=== PATIENT | female | born 1995 | race Two or more races ===

== ENCOUNTER 2018-09-28 12:45 | Emergency (ER) | payer OTHER ==
[~2018-09-28] VITALS: Ht 160 cm; Wt 54.4 kg
[~2018-09-28 12:45] MED LIST: ALBUTEROL
== END 2018-09-28 15:28 | disposition home or self-care (01) ==
LOC: ER 12:45
DX: R10.2 Pelvic and perineal pain (principal); N94.6 Dysmenorrhea, unspecified

== ENCOUNTER 2023-02-05 11:39 | Emergency (ER) | payer OTHER ==
[~2023-02-05] VITALS: Ht 157.5 cm; Wt 55.8 kg
[2023-02-05 13:23] LABS: PH,URINE 5.5 (5.0-8.0); URINE APPEARANCE Clear; URINE BILIRRUBIN Negative (NEGATIVE); URINE BLOOD Negative; URINE COLOR Yellow; URINE GLUCOSE Negative (NEGATIVE); URINE LEUKOCYTE Small; URINE NITRATE Negative; URINE PROTEIN Negative (NEGATIVE); URINE UROBILINOGEN 0.2 E.U./dl
[2023-02-05 13:24] LABS: HEMOGLOBIN 11.9 g/dL (12.0-15.00); MEAN CELL VOLUME 78.7 fL (80.00-100.00); MEAN CORPUSCULAR HEMOGLOBIN 26.1 pg (27.00-32.0); MEAN CORPUSCULAR HGB CONC 33.1 g/dl (32.0-36.0); PLATELET COUNT 237 K/uL (150-450); RED BLOOD COUNT 4.57 M/uL (4.00-6.00); RED CELL DISTRIBUTION WIDTH 15.4 % (11.5-14.5)
[2023-02-05 13:27] LABS: URINE BACTERIA 885.7 uL (0.0-1933); URINE EPITHELIAL CELLS 17.4 uL (0.0-38.8); URINE RBC 8.6 uL (0.0-20.8); URINE WBC 70.9 uL (0.0-23.2)
[2023-02-05 14:30] LABS: CALCIUM 9.1 mg/dL (8.5-10.1); CREATININE SERUM 0.7 mg/dL (0.55-1.02); GFR 100.38; POTASSIUM 3.52 mEq/L (3.5-5.1)
== END 2023-02-05 15:56 | disposition home or self-care (01) ==
LOC: ER 11:39
PROVIDERS: General Practice
DX: N39.0 Urinary tract infection, site not specified (principal)

== ENCOUNTER → 2023-06-03 | Emergency (ER) | payer OTHER ==
[~2023-06-03] VITALS: Ht 162.6 cm; Wt 54.4 kg
== END | disposition left against medical advice (07) ==
LOC: ER 18:47
DX: Z53.21 Procedure and treatment not carried out due to patient leaving prior to being seen by health care provider (principal)